=== PATIENT | female | born 2000 | race Caucasian/White ===

== ENCOUNTER → 2023-07-15 | Outpatient (REF) | payer BC ==
[2023-07-15 14:11] LABS: BASO # 0.1 10^3/uL (0.0-0.2); BASO % 0.8 % (0.0-1.0); EOS # 0.2 10^3/uL (0.0-0.5); EOS % 2.2 % (0.0-3.0); HEMATOCRIT 40.2 % (36.0-47.0); HEMOGLOBIN 14.2 g/dl (12.0-15.5); LYMPH # 2.7 10^3/uL (1.5-5.0); LYMPH % 27.8 % (24.0-44.0); MEAN CORPUSCULAR HEMOGLOBIN 30.6 pg (27.0-33.0); MEAN CORPUSCULAR HGB CONC 35.3 g/dl (32.0-36.5); MEAN CORPUSCULAR VOLUME 86.6 fl (80.0-96.0); MONO # 0.8 10^3/uL (0.0-0.8); MONO % 8.3 % (2.0-8.0); NEUTROPHILS # 5.9 10^3/uL (1.5-8.5); NEUTROPHILS % 60.7 % (36.0-66.0); PLATELET COUNT, AUTOMATED 407 10^3/uL (150-450); RED BLOOD COUNT 4.64 10^6/uL (4.00-5.40); WHITE BLOOD COUNT 9.8 10^3/uL (4.0-10.0)
[2023-07-15 14:12] LABS: ALBUMIN 3.7 G/DL (3.2-5.2); ALKALINE PHOSPHATASE 157 U/L (46-116); ALT/SGPT 9 U/L (7.0-40); AST/SGOT 8 U/L (<34); BILIRUBIN,TOTAL 0.2 MG/DL (0.3-1.2); BLOOD UREA NITROGEN 14 MG/DL (9-23); CALCIUM LEVEL 9.4 MG/DL (8.5-10.1); CARBON DIOXIDE LEVEL 25 MMOL/L (20-31); CHLORIDE LEVEL 97 MMOL/L (98-107); CHOLESTEROL LEVEL 198 MG/DL (<200); CHOLESTEROL RISK RATIO 3.34 (<5); CREATININE FOR GFR 0.53 MG/DL (0.55-1.30); GLOMERULAR FILTRATION RATE > 60.0 (>60); GLUCOSE, FASTING 354 MG/DL (60-100); HDL CHOLESTEROL 59.2 MG/DL (>40); LDL CHOLESTEROL 122.4 MG/DL (<100); MAGNESIUM LEVEL 1.8 MG/DL (1.8-2.4); NON-HDL-C 138.8 MG/DL; POTASSIUM SERUM 4.5 MMOL/L (3.5-5.1); SODIUM LEVEL 130 MMOL/L (136-145); TOTAL PROTEIN 7.3 G/DL (5.7-8.2); TRIGLYCERIDES LEVEL 82 MG/DL (<150)
[2023-07-15 14:13] LABS: TOTAL 25(OH) VITAMIN D 31.1 NG/ML (20.0-100.0)
[2023-07-15 14:24] LABS: HEMOGLOBIN A1c 10.8 % (4.0-6.0)
[2023-07-15 14:43] LABS: HIV 1&2 SCREEN NEGATIVE (NEGATIVE)
[2023-07-15 14:51] LABS: HEPATITIS C VIRUS ABY INDEX 0.02 INDEX (<0.8)
== END ==
LOC: M LAB REF 13:22
PROVIDERS: ATTEND Nurse Practitioner Family
DX: Z11.9 Encounter for screening for infectious and parasitic diseases, unspecified (principal); E55.9 Vitamin D deficiency, unspecified; R53.83 Other fatigue; E66.9 Obesity, unspecified

== ENCOUNTER → 2023-08-13 | Outpatient (CLI) | payer BC ==
[~2023-08-13] MED LIST: ISOVUE-370 76% 100ML VIAL As Ordered ONE
== END ==
LOC: M RAD 09:49
PROVIDERS: ATTEND Physician Assistant
DX: R06.00 Dyspnea, unspecified (principal); R91.8 Other nonspecific abnormal finding of lung field
CPT/HCPCS: 71275; 93242; Q9967

== ENCOUNTER → 2023-08-13 | Outpatient (REF) | payer BC ==
[2023-08-13 12:41] LABS: BASO # 0.1 10^3/uL (0.0-0.2); BASO % 0.8 % (0.0-1.0); EOS # 0.2 10^3/uL (0.0-0.5); EOS % 1.7 % (0.0-3.0); HEMATOCRIT 39.6 % (36.0-47.0); HEMOGLOBIN 13.9 g/dl (12.0-15.5); LYMPH % 31.3 % (24.0-44.0); MEAN CORPUSCULAR HGB CONC 35.1 g/dl (32.0-36.5); MEAN CORPUSCULAR VOLUME 85.5 fl (80.0-96.0); MONO # 0.8 10^3/uL (0.0-0.8); MONO % 8.6 % (2.0-8.0); NEUTROPHILS # 5.5 10^3/uL (1.5-8.5); NEUTROPHILS % 57.4 % (36.0-66.0); PLATELET COUNT, AUTOMATED 445 10^3/uL (150-450); RED BLOOD COUNT 4.63 10^6/uL (4.00-5.40); WHITE BLOOD COUNT 9.6 10^3/uL (4.0-10.0)
[2023-08-13 12:46] LABS: FREE T4 0.91 NG/DL (0.89-1.76); THYROID STIMULATING HORMONE 5.145 uIU/ML (0.55-4.78)
== END ==
LOC: M LAB REF 11:41
PROVIDERS: ATTEND Physician Assistant
DX: R00.0 Tachycardia, unspecified (principal)

== ENCOUNTER 2024-05-27 22:52 | Emergency (ER) | payer BC ==
[~2024-05-27] VITALS: Ht 162.6 cm; Wt 98.1 kg
[2024-05-27 23:07] VITALS: TEMP 99.6
[2024-05-28] MEDS ORDERED: MECL-86 PO (00:43)
[2024-05-28] MEDS: ACETAMINOPHEN 325 MG TAB PO ONE (01:13)
[2024-05-28] MEDS: MECLIZINE 25 MG TABLET PO ONE (01:13)
[2024-05-28 01:14] VITALS: BP 126/78; O2SAT 97
== END 2024-05-28 01:16 | disposition home or self-care (01) ==
LOC: M ED 22:52
DX: S06.0X0A Concussion without loss of consciousness, initial encounter (principal); Y04.2XXA Assault by strike against or bumped into by another person, initial encounter; E10.9 Type 1 diabetes mellitus without complications; F90.9 Attention-deficit hyperactivity disorder, unspecified type; F10.10 Alcohol abuse, uncomplicated; Z88.0 Allergy status to penicillin; Z79.899 Other long term (current) drug therapy; Y92.9 Unspecified place or not applicable; Y93.89 Activity, other specified; Y99.0 Civilian activity done for income or pay

== ENCOUNTER 2024-08-12 03:10 | Inpatient (IN) | payer BC ==
[2024-08-12] VITALS (12 sets, daily range): BP systolic 111–137; BP diastolic 56–71; TEMP 98.3–98.6; O2SAT 97–99
[~2024-08-12] VITALS: Ht 162.6 cm; Wt 94.3 kg
[~2024-08-12 03:10] MED LIST changes: -ISOVUE-370 76% 100ML VIAL As Ordered ONE; +MECL-86 PO
[2024-08-12 03:47] LABS: VENOUS BASE EXCESS -24.7 (-2.0-2.0); VENOUS HCO3 5.7 MMOL/L (23.0-27.0); VENOUS O2 SATURATION 80.1 % (60.0-80.0); VENOUS PARTIAL PRESSURE CO2 24.5 mmHg (38.0-50.0); VENOUS PARTIAL PRESSURE O2 54.5 mmHg (30.0-50.0); VENOUS PH 6.984 UNITS (7.330-7.430); VENOUS STANDARD HCO3 7.7 MMOL/L; VENOUS TOTAL CO2 6.4 MMOL/L (24.0-28.0)
[2024-08-12] MEDS: NS (Normal Saline) 0.9% 1,000 ML IV ONE ×5 (03:51→14:21)
[2024-08-12 03:55] LABS: BASO # 0.2 10^3/uL (0.0-0.2); BASO % 0.9 % (0.0-1.0); HEMATOCRIT 45.9 % (36.0-47.0); HEMOGLOBIN 15.2 g/dl (12.0-15.5); LYMPH # 2.5 10^3/uL (1.5-5.0); LYMPH % 11.1 % (24.0-44.0); MEAN CORPUSCULAR HEMOGLOBIN 29.5 pg (27.0-33.0); MEAN CORPUSCULAR HGB CONC 33.1 g/dl (32.0-36.5); MONO # 0.7 10^3/uL (0.0-0.8); NEUTROPHILS # 18.9 10^3/uL (1.5-8.5); NEUTROPHILS % 84.2 % (36.0-66.0); PLATELET COUNT, AUTOMATED 640 10^3/uL (150-450); RED BLOOD COUNT 5.16 10^6/uL (4.00-5.40); WHITE BLOOD COUNT 22.4 10^3/uL (4.0-10.0)
[2024-08-12] MEDS ORDERED: INSULIN IV RATE CHANGE DOCUMENTATION ML/HR XX SCH (04:05)
[2024-08-12] MEDS: MORPHINE 4 MG/ML 1ML VIAL IV ONE (04:12)
[2024-08-12] MEDS: METOCLOPRAMIDE INJ 10MG/2ML VIAL IV ONE (04:12)
[2024-08-12] MEDS: HumuLIN R (REGULAR) INSULIN (NovoLIN R) **100U/ML** PER UNIT IV ONE (04:13)
[2024-08-12 04:22] LABS: HEMOGLOBIN A1c 8.8 % (4.0-6.0)
[2024-08-12 04:23] LABS: CK-MB VALUE MASS < 1.0 NG/ML (<3.6)
[2024-08-12 04:24] LABS: LIPASE 20 U/L (12-53); OSMOLALITY SERUM 328 MOSM/KG (275-295)
[2024-08-12 04:34] LABS: ACETONE/KETONE > 4.50 MMOL/L (0.02-0.27); ALBUMIN 4.2 G/DL (3.2-5.2); ALKALINE PHOSPHATASE 195 U/L (35-104); ALT/SGPT 17 U/L (7.0-40); AST/SGOT 14 U/L (<34); BILIRUBIN,DIRECT < 0.1 MG/DL (<0.4); BILIRUBIN,TOTAL 0.2 MG/DL (0.3-1.2); BLOOD UREA NITROGEN 13 MG/DL (9-23); CALCIUM LEVEL 9.2 MG/DL (8.5-10.1); CARBON DIOXIDE LEVEL < 10.0 MMOL/L (20-31); CHLORIDE LEVEL 99 MMOL/L (98-107); CPK CREATINE PHOSPHOKINASE 48 U/L (34-145); CREATININE FOR GFR 0.75 MG/DL (0.55-1.30); GLOMERULAR FILTRATION RATE > 60.0 (>60); GLUCOSE, FASTING 568 MG/DL (60-100); MB/CK RELATIVE INDEX 2.08 (< OR =4); POTASSIUM SERUM 5.6 MMOL/L (3.5-5.1); SODIUM LEVEL 133 MMOL/L (136-145); TOTAL PROTEIN 8.4 G/DL (5.7-8.2)
[2024-08-12 04:36] LABS: HCG, SERUM QUALITATIVE NEGATIVE (NEGATIVE)
[2024-08-12] MEDS: INSULIN REGULAR IN 0.9 % NACL 100 UNIT in IV 1 EA IV SCH ×3 (04:40→20:03)
[2024-08-12 04:57] LABS: MAGNESIUM LEVEL 2.2 MG/DL (1.8-2.4)
[2024-08-12 05:42] LABS: ABG BASE EXCESS -27.7 (-2.0-2.0); ABG O2 SATURATION 97.4 % (95.0-99.0); ABG STANDARD HCO3 6.3 MMOL/L. (22.0-26.0); ABG TOTAL CO2 3.4 MMOL/L (22.0-29.0)
[2024-08-12 05:44] LABS: ABG pH (ARTERIAL) 6.945 UNITS (7.350-7.450)
[2024-08-12 05:45] LABS: ABG PARTIAL PRESSURE CO2 13.9 mmHg (35.0-45.0)
[2024-08-12] MEDS ORDERED: MOM 30ML SUSPENSION UDC PO PRN (05:45)
[2024-08-12] MEDS: SODIUM BICARBONATE 8.4% INJ 50ML SYRINGE IV SCH (06:34)
[2024-08-12] MEDS: NS (Normal Saline) 0.9% 1,000 ML IV SCH (06:35)
[2024-08-12 06:54] LABS: VENOUS BASE EXCESS -25.4 (-2.0-2.0); VENOUS HCO3 5.7 MMOL/L (23.0-27.0); VENOUS PARTIAL PRESSURE CO2 26.3 mmHg (38.0-50.0); VENOUS PARTIAL PRESSURE O2 55.2 mmHg (30.0-50.0); VENOUS PH 6.952 UNITS (7.330-7.430); VENOUS STANDARD HCO3 7.2 MMOL/L; VENOUS TOTAL CO2 6.5 MMOL/L (24.0-28.0)
[2024-08-12] MEDS ORDERED: PROP10TA56 PO (07:11)
[2024-08-12] MEDS ORDERED: METO10TA3 PO (07:11)
[2024-08-12] MEDS ORDERED: LAMO150T3 PO (07:11)
[2024-08-12] MEDS ORDERED: LEXA1TAB2 PO (07:11)
[2024-08-12] MEDS ORDERED: OLAN2.5T53 PO (07:11)
[2024-08-12] MEDS ORDERED: DEXT25CP PO (07:11)
[2024-08-12] MEDS ORDERED: LEVO25TA5 PO (07:11)
[2024-08-12] MEDS ORDERED: GABA-1172 PO (07:11)
[2024-08-12 07:21] LABS: KETONE, URINE AUTO RFX 2+ mg/dL (NEGATIVE); LEUKOCYTE ESTERASE UR AUTO RFX NEGATIVE (NEGATIVE); MUCUS, URINE RFX SMALL (NEGATIVE); NITRITE, URINE AUTO RFX NEGATIVE (NEGATIVE); RBC, URINE AUTO RFX 0 /HPF (0-3); SQUAM EPITHELIAL CELL UR AURFX 0 /HPF (0-6); WBC, URINE AUTO RFX 0 /HPF (0-3)
[2024-08-12 07:40] LABS: BLOOD UREA NITROGEN 13 MG/DL (9-23); BLOOD UREA NITROGEN 15 MG/DL (9-23); CALCIUM LEVEL 8.3 MG/DL (8.5-10.1); CALCIUM LEVEL 8.4 MG/DL (8.5-10.1); CARBON DIOXIDE LEVEL < 10.0 MMOL/L (20-31); CHLORIDE LEVEL 110 MMOL/L (98-107); CREATININE FOR GFR 0.73 MG/DL (0.55-1.30); CREATININE FOR GFR 0.74 MG/DL (0.55-1.30); GLOMERULAR FILTRATION RATE > 60.0 (>60); GLUCOSE, FASTING 273 MG/DL (60-100); GLUCOSE, FASTING 276 MG/DL (60-100); PHOSPHORUS LEVEL 3.4 MG/DL (2.5-4.9); POTASSIUM SERUM 4.4 MMOL/L (3.5-5.1); POTASSIUM SERUM 4.5 MMOL/L (3.5-5.1); SODIUM LEVEL 141 MMOL/L (136-145); SODIUM LEVEL 143 MMOL/L (136-145)
[2024-08-12 08:06] LABS: OSMOLALITY SERUM 316 MOSM/KG (275-295)
[2024-08-12] MEDS: PANTOPRAZOLE 40MG VIAL IV SCH (08:17)
[2024-08-12] MEDS: ACETAMINOPHEN 325 MG TAB PO PRN (08:34)
[2024-08-12 08:42] LABS: VENOUS BASE EXCESS -25.3 (-2.0-2.0); VENOUS O2 SATURATION 93.4 % (60.0-80.0); VENOUS PARTIAL PRESSURE CO2 21.8 mmHg (38.0-50.0); VENOUS PARTIAL PRESSURE O2 79.3 mmHg (30.0-50.0); VENOUS PH 6.979 UNITS (7.330-7.430); VENOUS STANDARD HCO3 7.4 MMOL/L; VENOUS TOTAL CO2 5.7 MMOL/L (24.0-28.0)
[2024-08-12 08:59] LABS: ACETONE/KETONE > 4.50 MMOL/L (0.02-0.27)
[2024-08-12 09:04] LABS: HEMOGLOBIN A1c 8.8 % (4.0-6.0)
[2024-08-12] MEDS ORDERED: INSU100I16 SC (09:14)
[2024-08-12] MEDS ORDERED: LANTINJ4 SC (09:14)
[2024-08-12] MEDS ORDERED: HOME MED LIST COMPLETE! XX SCH (09:15)
[2024-08-12] MEDS: SODIUM BICARBONATE 8.4% INJ 50ML SYRINGE IV STA (09:19)
[2024-08-12] MEDS: D5W/0.45% SODIUM CHLORIDE 1,000 ML IV SCH (09:20)
[2024-08-12 09:31] LABS: BLOOD UREA NITROGEN 14 MG/DL (9-23); CALCIUM LEVEL 8.3 MG/DL (8.5-10.1); CARBON DIOXIDE LEVEL < 10.0 MMOL/L (20-31); CHLORIDE LEVEL 110 MMOL/L (98-107); CREATININE FOR GFR 0.67 MG/DL (0.55-1.30); GLOMERULAR FILTRATION RATE > 60.0 (>60); GLUCOSE, FASTING 190 MG/DL (60-100); SODIUM LEVEL 142 MMOL/L (136-145)
[2024-08-12 09:56] LABS: BLOOD UREA NITROGEN 13 MG/DL (9-23); CALCIUM LEVEL 8.4 MG/DL (8.5-10.1); CARBON DIOXIDE LEVEL < 10.0 MMOL/L (20-31); CHLORIDE LEVEL 112 MMOL/L (98-107); GLOMERULAR FILTRATION RATE > 60.0 (>60); GLUCOSE, FASTING 152 MG/DL (60-100); POTASSIUM SERUM 4.5 MMOL/L (3.5-5.1); SODIUM LEVEL 141 MMOL/L (136-145)
[2024-08-12 13:29] LABS: VENOUS O2 SATURATION 99.1 % (60.0-80.0)
[2024-08-12 13:31] LABS: VENOUS BASE EXCESS -19.1 (-2.0-2.0); VENOUS HCO3 6.6 MMOL/L (23.0-27.0); VENOUS PARTIAL PRESSURE O2 237.3 mmHg (30.0-50.0); VENOUS PH 7.204 UNITS (7.330-7.430); VENOUS STANDARD HCO3 10.7 MMOL/L; VENOUS TOTAL CO2 7.1 MMOL/L (24.0-28.0)
[2024-08-12 13:58] LABS: BLOOD UREA NITROGEN 11 MG/DL (9-23); CALCIUM LEVEL 7.9 MG/DL (8.5-10.1); CARBON DIOXIDE LEVEL < 10.0 MMOL/L (20-31); CHLORIDE LEVEL 114 MMOL/L (98-107); CREATININE FOR GFR 0.68 MG/DL (0.55-1.30); GLOMERULAR FILTRATION RATE > 60.0 (>60); GLUCOSE, FASTING 163 MG/DL (60-100); PHOSPHORUS LEVEL 1.5 MG/DL (2.5-4.9); POTASSIUM SERUM 4.2 MMOL/L (3.5-5.1); SODIUM LEVEL 142 MMOL/L (136-145)
[2024-08-12] MEDS: INSULIN IV RATE CHANGE DOCUMENTATION ML/HR XX SCH ×2 (15:13→20:04)
[2024-08-12 17:01] LABS: VENOUS BASE EXCESS -17.8 (-2.0-2.0); VENOUS HCO3 8.7 MMOL/L (23.0-27.0); VENOUS O2 SATURATION 97.9 % (60.0-80.0); VENOUS PARTIAL PRESSURE CO2 23.8 mmHg (38.0-50.0); VENOUS PARTIAL PRESSURE O2 115.3 mmHg (30.0-50.0); VENOUS PH 7.182 UNITS (7.330-7.430); VENOUS STANDARD HCO3 11.4 MMOL/L; VENOUS TOTAL CO2 9.5 MMOL/L (24.0-28.0)
[2024-08-12 17:21] LABS: BLOOD UREA NITROGEN 9 MG/DL (9-23); CALCIUM LEVEL 8.3 MG/DL (8.5-10.1); CARBON DIOXIDE LEVEL < 10.0 MMOL/L (20-31); CHLORIDE LEVEL 112 MMOL/L (98-107); CREATININE FOR GFR 0.63 MG/DL (0.55-1.30); GLOMERULAR FILTRATION RATE > 60.0 (>60); GLUCOSE, FASTING 125 MG/DL (60-100); SODIUM LEVEL 142 MMOL/L (136-145)
[2024-08-12 20:22] LABS: VENOUS BASE EXCESS -13.6 (-2.0-2.0); VENOUS HCO3 11.6 MMOL/L (23.0-27.0); VENOUS O2 SATURATION 98.7 % (60.0-80.0); VENOUS PARTIAL PRESSURE CO2 26.1 mmHg (38.0-50.0); VENOUS PARTIAL PRESSURE O2 147.2 mmHg (30.0-50.0); VENOUS PH 7.267 UNITS (7.330-7.430); VENOUS TOTAL CO2 12.4 MMOL/L (24.0-28.0)
[2024-08-12 20:36] LABS: BLOOD UREA NITROGEN 9 MG/DL (9-23); CALCIUM LEVEL 8.1 MG/DL (8.5-10.1); CARBON DIOXIDE LEVEL 12 MMOL/L (20-31); CHLORIDE LEVEL 112 MMOL/L (98-107); GLOMERULAR FILTRATION RATE > 60.0 (>60); GLUCOSE, FASTING 149 MG/DL (60-100); POTASSIUM SERUM 3.6 MMOL/L (3.5-5.1); SODIUM LEVEL 140 MMOL/L (136-145)
[2024-08-13] VITALS (25 sets, daily range): BP systolic 108–154; BP diastolic 55–91; TEMP 97.4–98.9; O2SAT 97–99
[2024-08-13] MEDS: POTASSIUM CHLORIDE 10MEQ SR TABLET PO ONE (00:16)
[2024-08-13 01:12] LABS: VENOUS BASE EXCESS -13.5 (-2.0-2.0); VENOUS HCO3 13.4 MMOL/L (23.0-27.0); VENOUS O2 SATURATION 97.2 % (60.0-80.0); VENOUS PARTIAL PRESSURE CO2 34.6 mmHg (38.0-50.0); VENOUS PARTIAL PRESSURE O2 103.2 mmHg (30.0-50.0); VENOUS PH 7.205 UNITS (7.330-7.430); VENOUS STANDARD HCO3 14.1 MMOL/L; VENOUS TOTAL CO2 14.4 MMOL/L (24.0-28.0)
[2024-08-13 01:40] LABS: BLOOD UREA NITROGEN 8 MG/DL (9-23); CALCIUM LEVEL 8.5 MG/DL (8.5-10.1); CARBON DIOXIDE LEVEL 15 MMOL/L (20-31); CHLORIDE LEVEL 110 MMOL/L (98-107); CREATININE FOR GFR 0.58 MG/DL (0.55-1.30); GLOMERULAR FILTRATION RATE > 60.0 (>60); GLUCOSE, FASTING 163 MG/DL (60-100); POTASSIUM SERUM 3.4 MMOL/L (3.5-5.1); SODIUM LEVEL 139 MMOL/L (136-145)
[2024-08-13 05:07] LABS: BASO # 0.1 10^3/uL (0.0-0.2); BASO % 0.3 % (0.0-1.0); EOS # 0.1 10^3/uL (0.0-0.5); EOS % 0.5 % (0.0-3.0); HEMATOCRIT 33.9 % (36.0-47.0); LYMPH # 2.4 10^3/uL (1.5-5.0); LYMPH % 15.8 % (24.0-44.0); MEAN CORPUSCULAR HEMOGLOBIN 29.3 pg (27.0-33.0); MEAN CORPUSCULAR HGB CONC 34.5 g/dl (32.0-36.5); MONO # 1.1 10^3/uL (0.0-0.8); MONO % 7.3 % (2.0-8.0); NEUTROPHILS # 11.5 10^3/uL (1.5-8.5); NEUTROPHILS % 75.8 % (36.0-66.0); PLATELET COUNT, AUTOMATED 387 10^3/uL (150-450); RED BLOOD COUNT 3.99 10^6/uL (4.00-5.40); WHITE BLOOD COUNT 15.1 10^3/uL (4.0-10.0)
[2024-08-13 05:08] LABS: HEMOGLOBIN 11.7 g/dl (12.0-15.5)
[2024-08-13 05:26] LABS: ALBUMIN 2.9 G/DL (3.2-5.2); ALKALINE PHOSPHATASE 131 U/L (35-104); ALT/SGPT 14 U/L (7.0-40); AST/SGOT 8 U/L (<34); BILIRUBIN,TOTAL 0.3 MG/DL (0.3-1.2); BLOOD UREA NITROGEN 6 MG/DL (9-23); CALCIUM LEVEL 8.4 MG/DL (8.5-10.1); CARBON DIOXIDE LEVEL 14 MMOL/L (20-31); CHLORIDE LEVEL 111 MMOL/L (98-107); CREATININE FOR GFR 0.52 MG/DL (0.55-1.30); GLOMERULAR FILTRATION RATE > 60.0 (>60); GLUCOSE, FASTING 165 MG/DL (60-100); MAGNESIUM LEVEL 1.7 MG/DL (1.8-2.4); PHOSPHORUS LEVEL 0.9 MG/DL (2.5-4.9); POTASSIUM SERUM 3.1 MMOL/L (3.5-5.1); SODIUM LEVEL 138 MMOL/L (136-145); TOTAL PROTEIN 6.1 G/DL (5.7-8.2)
[2024-08-13] MEDS: ENOXAPARIN 40MG/0.4ML SYRINGE (J1650 PER 10MG) SC SCH (09:29)
[2024-08-13] MEDS: MAG SULF 1GM/100ML (MAG RUN) 1 GM in IV 1 EA IV ONE (09:30)
[2024-08-13] MEDS: LanTUS (INSULIN GLARGINE INJ) 1 UNITS/0.01 ML SC SCH (09:30)
[2024-08-13] MEDS: POTASSIUM PHOSPHATE INJ 30 MMOL in D5W 500 ML IV ONE (11:10)
[2024-08-13] MEDS ORDERED: INSULIN LISPRO (NovoLOG) PER UNIT SC SCH (12:00)
[2024-08-13 13:07] LABS: VENOUS HCO3 12.4 MMOL/L (23.0-27.0); VENOUS O2 SATURATION 99.1 % (60.0-80.0); VENOUS PARTIAL PRESSURE CO2 25.1 mmHg (38.0-50.0); VENOUS PARTIAL PRESSURE O2 230.8 mmHg (30.0-50.0); VENOUS PH 7.313 UNITS (7.330-7.430); VENOUS STANDARD HCO3 15.1 MMOL/L; VENOUS TOTAL CO2 13.2 MMOL/L (24.0-28.0)
[2024-08-13 13:36] LABS: BLOOD UREA NITROGEN < 5 MG/DL (9-23); CALCIUM LEVEL 8.4 MG/DL (8.5-10.1); CARBON DIOXIDE LEVEL 14 MMOL/L (20-31); CHLORIDE LEVEL 107 MMOL/L (98-107); GLOMERULAR FILTRATION RATE > 60.0 (>60); GLUCOSE, FASTING 247 MG/DL (60-100); POTASSIUM SERUM 3.3 MMOL/L (3.5-5.1); SODIUM LEVEL 137 MMOL/L (136-145)
[2024-08-13] MEDS ORDERED: GLUCAGON INJ 1MG VIAL SC PRN (14:35)
[2024-08-13] MEDS ORDERED: DEXTROSE 50% 50ML SYRINGE IV PRN (14:35)
[2024-08-13] MEDS ORDERED: GLUCOSE 4 GM CHEW PO PRN (14:35)
[2024-08-13] MEDS: INSULIN LISPRO (NovoLOG) PER UNIT SC SCH (14:59)
[2024-08-13 17:26] LABS: VENOUS BASE EXCESS -9.4 (-2.0-2.0); VENOUS HCO3 14.2 MMOL/L (23.0-27.0); VENOUS PARTIAL PRESSURE CO2 25.5 mmHg (38.0-50.0); VENOUS PARTIAL PRESSURE O2 232.5 mmHg (30.0-50.0); VENOUS PH 7.364 UNITS (7.330-7.430)
[2024-08-13 18:03] LABS: BLOOD UREA NITROGEN < 5 MG/DL (9-23); CALCIUM LEVEL 8.7 MG/DL (8.5-10.1); CARBON DIOXIDE LEVEL 15 MMOL/L (20-31); CHLORIDE LEVEL 109 MMOL/L (98-107); CREATININE FOR GFR 0.53 MG/DL (0.55-1.30); GLOMERULAR FILTRATION RATE > 60.0 (>60); GLUCOSE, FASTING 259 MG/DL (60-100); POTASSIUM SERUM 3.3 MMOL/L (3.5-5.1); SODIUM LEVEL 137 MMOL/L (136-145)
[2024-08-13] MEDS: POTASSIUM CHLORIDE 10MEQ SR TABLET PO SCH (18:47)
[2024-08-14] VITALS (10 sets, daily range): BP systolic 94–136; BP diastolic 58–83; TEMP 97.5–98.4; O2SAT 97–99
[2024-08-14 00:08] LABS: VENOUS BASE EXCESS -7.7 (-2.0-2.0); VENOUS HCO3 17.8 MMOL/L (23.0-27.0); VENOUS O2 SATURATION 93.9 % (60.0-80.0); VENOUS PARTIAL PRESSURE CO2 36.4 mmHg (38.0-50.0); VENOUS PARTIAL PRESSURE O2 65.8 mmHg (30.0-50.0); VENOUS PH 7.307 UNITS (7.330-7.430); VENOUS STANDARD HCO3 18.2 MMOL/L; VENOUS TOTAL CO2 18.9 MMOL/L (24.0-28.0)
[2024-08-14 00:37] LABS: BLOOD UREA NITROGEN < 5 MG/DL (9-23); CALCIUM LEVEL 8.8 MG/DL (8.5-10.1); CARBON DIOXIDE LEVEL 20 MMOL/L (20-31); CHLORIDE LEVEL 106 MMOL/L (98-107); CREATININE FOR GFR 0.52 MG/DL (0.55-1.30); GLOMERULAR FILTRATION RATE > 60.0 (>60); GLUCOSE, FASTING 181 MG/DL (60-100); POTASSIUM SERUM 4.1 MMOL/L (3.5-5.1); SODIUM LEVEL 138 MMOL/L (136-145)
[2024-08-14 04:47] LABS: BASO # 0.1 10^3/uL (0.0-0.2); BASO % 0.6 % (0.0-1.0); EOS # 0.1 10^3/uL (0.0-0.5); EOS % 1.2 % (0.0-3.0); HEMATOCRIT 37.6 % (36.0-47.0); HEMOGLOBIN 13.4 g/dl (12.0-15.5); LYMPH # 3.1 10^3/uL (1.5-5.0); LYMPH % 34.4 % (24.0-44.0); MEAN CORPUSCULAR HEMOGLOBIN 29.3 pg (27.0-33.0); MEAN CORPUSCULAR HGB CONC 35.6 g/dl (32.0-36.5); MEAN CORPUSCULAR VOLUME 82.3 fl (80.0-96.0); MONO # 0.7 10^3/uL (0.0-0.8); MONO % 7.6 % (2.0-8.0); PLATELET COUNT, AUTOMATED 404 10^3/uL (150-450); RED BLOOD COUNT 4.57 10^6/uL (4.00-5.40); WHITE BLOOD COUNT 8.9 10^3/uL (4.0-10.0)
[2024-08-14 05:08] LABS: ALBUMIN 3.5 G/DL (3.2-5.2); ALKALINE PHOSPHATASE 150 U/L (35-104); ALT/SGPT 13 U/L (7.0-40); AST/SGOT 11 U/L (<34); BILIRUBIN,TOTAL 0.4 MG/DL (0.3-1.2); BLOOD UREA NITROGEN < 5 MG/DL (9-23); CALCIUM LEVEL 9.4 MG/DL (8.5-10.1); CARBON DIOXIDE LEVEL 22 MMOL/L (20-31); CHLORIDE LEVEL 105 MMOL/L (98-107); CREATININE FOR GFR 0.47 MG/DL (0.55-1.30); GLOMERULAR FILTRATION RATE > 60.0 (>60); GLUCOSE, FASTING 109 MG/DL (60-100); MAGNESIUM LEVEL 1.9 MG/DL (1.8-2.4); PHOSPHORUS LEVEL 1.1 MG/DL (2.5-4.9); POTASSIUM SERUM 3.5 MMOL/L (3.5-5.1); SODIUM LEVEL 139 MMOL/L (136-145); TOTAL PROTEIN 7.2 G/DL (5.7-8.2)
[2024-08-14] MEDS: POTASSIUM PHOSPHATE INJ 30 MMOL in D5W 500 ML IV ONE (10:11)
[2024-08-14] MEDS ORDERED: PILL CUTTER 1 EACH XX PRN (12:10)
[2024-08-14] MEDS: INSULIN LISPRO (NovoLOG) PER UNIT SC SCH ×2 (12:43→21:00)
[2024-08-14] MEDS: lamoTRIgine 100MG TAB PO SCH (12:44)
[2024-08-14] MEDS: ESCITALOPRAM OXALATE 10 MG TAB (LEXAPRO) PO SCH (12:44)
[2024-08-14] MEDS: PROMETHAZINE 25MG/ML 1ML VIAL IV PRN (14:21)
[2024-08-14] MEDS: GABAPENTIN 300 MG CAP PO SCH (17:02)
[2024-08-14] MEDS: PROPRANOLOL 10 MG TAB PO SCH (17:04)
[2024-08-14] MEDS: METOCLOPRAMIDE 10MG TAB PO PRN (21:05)
[2024-08-15] VITALS: BP 118/71; TEMP 98.5; O2SAT 99
[2024-08-15 04:00] VITALS: BP 114/70; TEMP 97.7; O2SAT 98
[2024-08-15] MEDS: LEVOTHYROXINE 25MCG TABLET (0.025MG) PO SCH (06:26)
[2024-08-15 07:27] LABS: BASO # 0.1 10^3/uL (0.0-0.2); EOS # 0.1 10^3/uL (0.0-0.5); EOS % 1.5 % (0.0-3.0); HEMATOCRIT 40.1 % (36.0-47.0); HEMOGLOBIN 14.1 g/dl (12.0-15.5); LYMPH # 2.2 10^3/uL (1.5-5.0); LYMPH % 29.9 % (24.0-44.0); MEAN CORPUSCULAR HEMOGLOBIN 29.1 pg (27.0-33.0); MEAN CORPUSCULAR HGB CONC 35.2 g/dl (32.0-36.5); MEAN CORPUSCULAR VOLUME 82.7 fl (80.0-96.0); MONO # 0.7 10^3/uL (0.0-0.8); MONO % 9.8 % (2.0-8.0); NEUTROPHILS # 4.2 10^3/uL (1.5-8.5); NEUTROPHILS % 57.5 % (36.0-66.0); PLATELET COUNT, AUTOMATED 416 10^3/uL (150-450); RED BLOOD COUNT 4.85 10^6/uL (4.00-5.40); WHITE BLOOD COUNT 7.3 10^3/uL (4.0-10.0)
[2024-08-15 07:54] LABS: BLOOD UREA NITROGEN < 5 MG/DL (9-23); CALCIUM LEVEL 9.6 MG/DL (8.5-10.1); CARBON DIOXIDE LEVEL 25 MMOL/L (20-31); CHLORIDE LEVEL 106 MMOL/L (98-107); GLOMERULAR FILTRATION RATE > 60.0 (>60); GLUCOSE, FASTING 134 MG/DL (60-100); MAGNESIUM LEVEL 1.9 MG/DL (1.8-2.4); PHOSPHORUS LEVEL 2.9 MG/DL (2.5-4.9); POTASSIUM SERUM 3.8 MMOL/L (3.5-5.1); SODIUM LEVEL 141 MMOL/L (136-145)
[2024-08-15 08:00] VITALS: BP 125/85; TEMP 97.2; O2SAT 99
[2024-08-15 09:24] VITALS: BP 125/85
[2024-08-15] MEDS: OLANZapine 2.5MG TABLET PO SCH (09:25)
== END 2024-08-15 11:10 | disposition home or self-care (01) | DRG 420 ==
LOC: M ED 03:10 → M ED INP 05:45 → M ICU 12:13 → M PED 08-14 13:09
PROVIDERS: ADMIT Internal Medicine Critical Care Medicine; ATTEND Internal Medicine
DX: E10.10 Type 1 diabetes mellitus with ketoacidosis without coma (principal); E83.42 Hypomagnesemia; E83.39 Other disorders of phosphorus metabolism; E87.6 Hypokalemia; D72.829 Elevated white blood cell count, unspecified; Z91.148 Patient's other noncompliance with medication regimen for other reason; Z98.42 Cataract extraction status, left eye; Z88.0 Allergy status to penicillin

== ENCOUNTER → 2024-08-24 | Outpatient (REF) | payer BC ==
[~2024-08-24] MED LIST changes: +DEXT25CP PO; +GABA-1172 PO; +INSU100I16 SC; +LAMO150T3 PO; +LANTINJ4 SC; +LEVO25TA5 PO; +LEXA1TAB2 PO; +METO10TA3 PO; +OLAN2.5T53 PO; +PROP10TA56 PO
[2024-08-24 18:59] LABS: BASO # 0.1 10^3/uL (0.0-0.2); BASO % 0.8 % (0.0-1.0); EOS # 0.2 10^3/uL (0.0-0.5); EOS % 1.2 % (0.0-3.0); HEMATOCRIT 36.3 % (36.0-47.0); HEMOGLOBIN 12.3 g/dl (12.0-15.5); LYMPH # 2.7 10^3/uL (1.5-5.0); LYMPH % 20.4 % (24.0-44.0); MEAN CORPUSCULAR HEMOGLOBIN 29.5 pg (27.0-33.0); MEAN CORPUSCULAR HGB CONC 33.9 g/dl (32.0-36.5); MEAN CORPUSCULAR VOLUME 87.1 fl (80.0-96.0); MONO # 1.5 10^3/uL (0.0-0.8); MONO % 11.2 % (2.0-8.0); NEUTROPHILS # 8.7 10^3/uL (1.5-8.5); RED BLOOD COUNT 4.17 10^6/uL (4.00-5.40); WHITE BLOOD COUNT 13.1 10^3/uL (4.0-10.0)
[2024-08-24 19:15] LABS: ALBUMIN 3.7 G/DL (3.2-5.2); ALKALINE PHOSPHATASE 131 U/L (35-104); ALT/SGPT 27 U/L (7.0-40); AST/SGOT 21 U/L (<34); BILIRUBIN,TOTAL 0.2 MG/DL (0.3-1.2); BLOOD UREA NITROGEN 17 MG/DL (9-23); CALCIUM LEVEL 9.7 MG/DL (8.5-10.1); CARBON DIOXIDE LEVEL 24 MMOL/L (20-31); CHLORIDE LEVEL 101 MMOL/L (98-107); CREATININE FOR GFR 0.63 MG/DL (0.55-1.30); GLOMERULAR FILTRATION RATE > 60.0 (>60); GLUCOSE, FASTING 257 MG/DL (60-100); PHOSPHORUS LEVEL 5.1 MG/DL (2.5-4.9); SODIUM LEVEL 134 MMOL/L (136-145); TOTAL PROTEIN 7.2 G/DL (5.7-8.2)
[2024-08-24 19:23] LABS: PLATELET COUNT, AUTOMATED 444 10^3/uL (150-450)
== END ==
LOC: M LAB REF 18:05
PROVIDERS: ATTEND Physician Assistant
DX: E83.39 Other disorders of phosphorus metabolism (principal)